=== PATIENT | male | born 1965 | race Hispanic/Latino ===

== ENCOUNTER 2017-07-10 04:14 | Emergency (ER) | payer BC ==
[2017-07-10] MEDS ORDERED: Proparacaine 0.5% Opth 15 ML BOT ONE (04:38)
[2017-07-10] MEDS ORDERED: Fluorescein Opthalmic Strip ONE (04:39)
== END 2017-07-10 05:00 | disposition home or self-care (01) ==
LOC: ERS 04:14
DX: W20.8XXA Other cause of strike by thrown, projected or falling object, initial encounter; S05.02XA Injury of conjunctiva and corneal abrasion without foreign body, left eye, initial encounter
CPT/HCPCS: 99283